=== PATIENT | female | born 1950 | race Caucasian/White ===

== ENCOUNTER 2019-01-20 07:50 | Observation (INO) | payer MEDICARE, BC ==
--- NOTE | 2019-01-18 16:10 | Diagnostic Imaging Report ---
EXAMINATION: CHEST 2 VIEWS INDICATION: Pre-operative COMPARISON: None FINDINGS: LINES/TUBES:None LUNGS:The lungs are hyperinflated. No focal consolidation or pulmonary edema. PLEURA:No pleural effusion or pneumothorax. MEDIASTINUM:The cardiomediastinal silhouette appears normal in size and shape. BONES/SOFT TISSUES:No acute osseous injury. ABDOMEN:No free air under the diaphragm. IMPRESSION: Hyperinflated lungs. No focal pneumonia or pulmonary edema. Signed by: Anne Marie Hendricks MD on 01/18/2019 4:07 PM
[2019-01-18 16:55] LABS: BASOPHILS % 0.5 % (0.0-1.0); EOSINOPHILS # (AUTO) 0.3 (0.0-0.4); EOSINOPHILS % 4.5 % (0.0-6.0); HEMATOCRIT 37.3 % (34.2-44.1); HEMOGLOBIN 12.6 g/dL (12.0-16.0); LYMPHOCYTES # (AUTO) 2.1 (1.0-3.2); LYMPHOCYTES % 37.8 % (18.0-39.1); MEAN CORPUSCULAR HEMOGLOBIN 33.3 pg (28-32); MEAN CORPUSCULAR HGB CONC 33.8 g/dL (31-35); MEAN CORPUSCULAR VOLUME 98.7 fL (81-99); MONOCYTES # (AUTO) 0.5 (0.2-0.8); MONOCYTES % 9.5 % (4.4-11.3); NEUTROPHILS # (AUTO) 2.6 (2.1-6.9); NEUTROPHILS % 47.2 % (38.7-80.0); RED BLOOD COUNT 3.78 x10e6/uL (3.6-5.1); RED CELL DISTRIBUTION WIDTH 13.1 % (11.7-14.4)
[2019-01-18 17:02] LABS: PLATELET COUNT 99 x10e3/uL (140-360)
[2019-01-18 17:05] LABS: INR 0.9; PARTIAL THROMBOPLASTIN TIME 25.3 seconds (23.8-35.5); PROTHROMBIN TIME 12.6 seconds (11.9-14.5)
[2019-01-18 17:12] LABS: ANION GAP 16.7 mmol/L (8-16); CALCIUM 9.8 mg/dL (8.4-10.2); CREATININE, SERUM 0.98 mg/dL (0.57-1.11); POTASSIUM 3.7 mmol/L (3.5-5.1)
[~2019-01-20] VITALS: Ht 165.1 cm; Wt 54.4 kg
[~2019-01-20 07:50] MED LIST: ADVIL200 MG PO; IMBRUVICA PO; TYLENOL SINUS PO
--- OUTSIDE RECORDS SUMMARY | 2019-01-20 07:55 | XMS REPORT ---
Author [facility] Address Unknown Phone Unavailable Care Team Providers Care [employer] Report Developer Name Role Phone PAPA ISLAS Unavailable Unavailable Problems This patient has no known problems. Allergies, Adverse Reactions, Alerts This patient has no known allergies or adverse reactions. Medications This patient has no known medications. Results Test Description Test Time Test Comments Text Results Atomic Results Result Comments CHEST 2 VIEWS 2019-01-18 16:06:00 [place] [id number] Patient Name: RINKU EASTON MR #: [id number] : 1950 Age/Sex: 68/F Req #: [id number] [facility] Physician: Ordered by: PAPA ISLAS MD Report #: [id number] Location: OR Room/Bed: Procedure: [id number] DX/CHEST 2 VIEWS Exam Date: 01/18/19 Exam Time: 1534 REPORT STATUS: Signed EXAMINATION: CHEST 2 VIEWS INDICATION: Pre-operative COMPARISON: None FINDINGS: LINES/TUBES:None LUNGS:The lungs are hyperinflated. No focal consolidation or pulmonary edema. PLEURA:No pleural effusion or pneumothorax. MEDIASTINUM:The cardiomediastinal silhouette appears normal in size and shape. BONES/SOFT TISSUES:No acute osseous injury. ABDOMEN:No free air under the diaphragm. IMPRESSION: Hyperinflated lungs. No focal pneumonia or pulmonary edema. Signed by: Gege Hendricks MD on 01/18/2019 4:07 PM Dictated By: GEGE HENDRICKS MD 1608 Transcribed By: ALVERTO on 01/18/19 1607 COPY TO: PAPA ISLAS MD
--- OUTSIDE RECORDS SUMMARY | 2019-01-20 07:56 | XMS REPORT | Summary of Care ---
Author Author Willie Hawthorne Unknown Address Unknown Phone Unavailable Care Team Providers Care Government Property Inspector Name Role Phone Danyell Hatch LVN Unavailable Unavailable JOANIE BOYLE, LANA Owens Unavailable Unavailable GAVIOTA FLEMING Unavailable Unavailable JOANIE Sultana, LANA Unavailable Unavailable ELIAS BOYLE VA, ESPINOZA COTTON Unavailable Unavailable Unavailable Unavailable Functional Status Name Dates Details Functional status health issues are not documented Status: Name Dates Details Cognitive status health issues are not documented Status: Problems Name Dates Details Allergic conjunctivitis (372.14, H10.10) Status: Active Pneumococcal vaccination declined by patient (V64.06, Z28.21) Status: Active Swelling of hand joint, right (719.04, M25.441) Status: Active Encounter for routine gynecological examination with Papanicolaou smear of cervix (V72.31, Z01.419) Status: Active Breast screening (V76.10, Z12.39) Status: Active Acute vaginitis (616.10, N76.0) Status: Active Pruritus (698.9, L29.9) Status: Active Elevated blood pressure reading (796.2, R03.0) Status: Active Colonoscopy refused (V64.2, Z53.20) Status: Active At low risk for fall (V49.89, Z91.81) Status: Active Advance care planning (V65.49, Z71.89) Status: Active Encounter for mini-mental status examination Status: Active Depression screen (V79.0, Z13.31) Status: Active Need for hepatitis C screening test (V73.89, Z11.59) Status: Active Acute purulent bronchitis (466.0, J20.8) Status: Active Phoebe vaginitis (112.1, B37.3) Status: Active Colon cancer screening (V76.51, Z12.11) Status: Active Allergic reaction (995.3, T78.40XA) Status: Active Insect bite, initial encounter (919.4, W57.XXXA) Status: Active Multiple insect bites (919.4, W57.XXXA) Status: Active Left otitis externa (380.10, H60.92) Status: Active Cough (786.2, R05) Status: Active Leukemia, 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 * Refills: 0 Active Allergies and Adverse Reactions Name Dates Details Bactrim TABS (Allergy) Status: Active Contrast Media Ready-Box MISC (Allergy) Status: Active Morphine Derivatives (Allergy) Status: Active Past Medical History Name Dates Details History of arthritis (V13.4, Z87.39) Status: Resolved History of Lactose intolerance (271.3, E73.9) Status: Resolved Procedures Procedure Dates Details History of Nose Surgery Completed Immunization Name Dates Details Pneumococcal polysaccharide vaccine, 23 valent on: 13-Feb-2002 Fluzone INJ on: 13-Feb-2015 Influenza, seasonal, injectable on: 13-Feb-2018 Family History Name Dates Details Family history of lung cancer (V16.1, Z80.1) Status: Active Name Dates Details Family history of chronic lymphoid leukemia (V16.6, Z80.6) Status: Active Name Dates Details Family history of myocardial infarction (V17.3, Z82.49) Status: Active Family history of cardiac disorder (V17.49, Z82.49) Status: Active Social History Name Dates Details - Status: Name Dates Details Never smoker Vital Signs Date Test Result Details [id number] BP Systolic 108 mm[Hg] Status: Comments: Location: LLE; Position: Sitting BP Diastolic 71 mm[Hg] Status: Comments: Location: LLE; Position: Sitting Height 65 in Status: Weight 120 lb Status: Body Mass Index Calculated 19.97 kg/m2 Status: Body Surface Area Calculated 1.59 m2 Status: Temperature 99 f Status: Comments: Method: Temporal Respiration Rate 16 /min Status: Heart Rate 81 /min Status: Results Date Description Value Details [id number] MRI Spine lumbar wo contrast [id number] Spine lumbar wo contrast MRI SEE NOTES Comments: Patient Name: RINKU EASTONDOB: 1950; Age: 68 years y/o FemaleMR: [id number]: Spine lumbar wo contrast MRI 01/10/2019 10:31 CDTOrdering Physician: Gaviota Mginical Indication: - M54.42 Lumbago with sciatica, left side;Comparison: NoneTECHNIQUE: Multiplanar noncontrast magnetic resonance imaging of the lumbarspine performed.FINDINGS:5 nonrib-bearing lumbar vertebral bodies are p resumed to be present.Mild scoliosis with apex of the left at L3. The vertebral bodies are normal inheight. Mild loss of disc height noted throughout the lumbar spine. There isdiffuse T1 hypointense marrow signal concerning for a marrow replacementprocess. Also noted is extensive retroperitoneal adenopathy. Completeassessment with CT of the abdomen and pelvis is suggested. The conus medullaristerminates normally at L1.Changes by levels:L5-S1: Broad-based left foraminal disc protrusion with moderate left foraminalstenosis and displacement of the exiting nerve root.L4-L5: A left central superior disc extrusion measuring 12 mm in CC and 6 mmin AP dimension resulting in severe stenosis of the left lateral recess withimpingement of left L5 nerve root as it exits the thecal sac. There is severestenosis of the left lateral recess. There is moderate central canal stenosisas well. The foramina are unremarkable.L3-L4: Broad-based bilateral foraminal disc protrusions with mild foraminalnarrowing and superior displacement of the exiting nerve roots.L2-L3: Small disc bulge with mild foraminal stenosis.L1-L2: Central disc extrusion which extends both superior and inferior to thedisc. There is mild indentation on the ventral thecal sac and mild foraminalstenosis.IMPRESSION:Irregular T1 hypointense marrow signal throughout the lumbosacral spineconcerning for osseous metastases. A bone scan is suggested.Extensive retroperitoneal adenopathy. Further assessment with CT of the chestand abdomen is recommended. Multilevel degenerative changes as described.--Read by: Brandee Contrerasctated Date/time: 01/10/19 12:40Electronically Signed by: Brandee Contreras 01/11/1912:47FINAL REPORT [id number] MRI Spine Sacrum wo contrast [id number] Spine Sacrum wo contrast MRI SEE NOTES Comments: Patient Name: RINKU EASTONDOB: 1950; Age: 68 years y/o FemaleMR: [id number]: Spine Sacrum wo contrast MRI 01/10/2019 10:31 CDTOrdering Physician: Gaviota Mginical Indication: - M54.42 Lumbago with sciatica, left side;Comparison: NoneTECHNIQUE: Multiplanar T1, T2, STIR weighted noncontrast MRI of the sacralspine is performed on the 1.5 Hilda magnet.FINDINGS:Diffuse heterogeneous marrow signal to be correlated for metastasis. Noevidence of pathologic fracture. Partially visualized degenerative changes inthe lower lumbar spine as described an magnetic resonance imaging of the lumbarspine. Extensive retroperitoneal adenopathy to be correlated with CT of theabdomen and pelvis.IMPRESSION:Diffuse heterogeneous T1 hyperintense marrow signal to be correlated formetastasis. No evidence of pathologic fracture.Extensive retroperitoneal adenopathy. Further assessment with CT of the abdomenand pelvis and tissue diagnosis is recommended.This report will be faxed to the referring physician's office.--Read by: Brandee Contreras Date/time: 01/10/19 12:44Electronically Signed by: Brandee Contreras 01/11/1912:51FINAL REPORT Plan of Care Name Dates Details Planned Observations Planned Goals not documented Interventions Provided Follow-ups/Referrals* Neurosurgery Referral; To Be Done: 13 Jan 2019 Instructions Name Dates Details Instructions not documented Encounters Appointment; LANA NAIR M.D. Encounter Diagnosis: Problem not documented On: 29-Jun-2017 9:45 Appointment; CARIDAD MUÑIZ M.D. Encounter Diagnosis: Problem not documented On: 04-Mar-2018 14:45 Appointment; KERVIN CHRISTIE NP Encounter Diagnosis: Problem not documented On: 05-May-2018 7:30 Appointment; KERVIN CHRISTIE NP Encounter Diagnosis: Problem not documented On: 26-Oct-2018 10:30 Appointment; GAVIOTA WILSON NP Encounter Diagnosis: Problem not documented On: 01-Jan-2019 10:00
[2019-01-20] MEDS ORDERED: BUPIVACAINE 0.5%/EPI 30 ML SDV INJ ONE (08:28)
[2019-01-20] MEDS ORDERED: BACITRACIN 50,000 UNIT VIAL ONE (08:28)
[2019-01-20] MEDS ORDERED: THROMBIN FOR SOLN 5,000 UNIT VIAL ONE (08:28)
[2019-01-20] MEDS ORDERED: CEFAZOLIN SOD 1 GM/NS 50ML 50 ML IV ONE (09:27)
[2019-01-20] MEDS ORDERED: ACETAMINOPHEN 1000 MG/100 ML 100 ML IV ONE (10:45)
--- NOTE | 2019-01-20 11:05 | Diagnostic Imaging Report ---
EXAMINATION: SPINE 1 VW LUMBAR INDICATION: Intraoperative localization COMPARISON: None FINDINGS: Intraoperative portable crosstable lateral radiograph of the lumbar spine shows radiopaque markers bracketing the L4-5 disc space. Degenerative changes of the lower lumbar spine. IMPRESSION: Intraoperative localization as above. Signed by: Anne Marie Hendricks MD on 01/20/2019 11:01 AM
--- NOTE | 2019-01-20 11:05 | Diagnostic Imaging Report ---
EXAMINATION: SPINE 1 VW LUMBAR INDICATION: Intraoperative localization COMPARISON: None FINDINGS: Intraoperative portable crosstable lateral radiograph of the lumbar spine shows posterior surgical instrument directed at L4-5. Otherwise no significant change. IMPRESSION: Intraoperative localization at L4-5. Signed by: Anne Marie Hendricks MD on 01/20/2019 11:02 AM
[2019-01-20] MEDS ORDERED: LIDOCAINE HCL 2% LOCAL INJ 5 ML SDV VIAL INJ ONE (11:10)
[2019-01-20] MEDS ORDERED: NEOSTIGMINE 5 MG/5ML SYR ONE (11:10)
[2019-01-20] MEDS ORDERED: DEXAMETHASONE SOD PHOS INJ 4 MG/ML VIAL ONE (11:10)
[2019-01-20] MEDS ORDERED: PROPOFOL IV EMULSION 10 MG/ML 20 ML VIAL ONE (11:10)
[2019-01-20] MEDS ORDERED: ONDANSETRON HCL INJ 2MG/ML 2ML 2 MG/ML VIAL ONE (11:10)
[2019-01-20] MEDS ORDERED: GLYCOPYRROLATE INJ 1MG/ 5 ML SYR ONE (11:10)
[2019-01-20] MEDS ORDERED: DESFLURANE 240 ML BTL INH ONE (11:10)
[2019-01-20] MEDS ORDERED: CARISOPRODOL 350 MG TAB PO PRN (11:15)
[2019-01-20] MEDS ORDERED: ACETAMINOPHEN 325 MG TAB PO PRN (11:15)
[2019-01-20] MEDS ORDERED: PROMETHAZINE HCL (IM) 25 MG/ML VIAL IM PRN (11:15)
[2019-01-20] MEDS ORDERED: MAGNESIUM/ALUMINUM/SIMETHICONE 30 ML UDC PO PRN (11:15)
[2019-01-20] MEDS ORDERED: ONDANSETRON HCL INJ 2MG/ML 2ML 2 MG/ML VIAL IV PRN (11:15)
[2019-01-20] MEDS ORDERED: OXYCODONE/ACETAMINOPHEN 5-325 1 EACH TABLET PO PRN (11:15)
[2019-01-20] MEDS ORDERED: CEPACOL SORE THROAT LOZENGES PO PRN (11:15)
[2019-01-20] MEDS: LACTATED RINGER'S 1,000 ML IV SCH ×2 (11:15→18:18)
[2019-01-20] MEDS ORDERED: HYDROMORPHONE 2MG/ML 2 MG/ML ML IV PRN (11:15)
[2019-01-20] MEDS ORDERED: HYDROMORPHONE 1MG/1ML INJ IV PRN ×2 (13:30→13:45)
--- NOTE | 2019-01-20 14:20 | Operative Report ---
DATE OF PROCEDURE: 01/20/2019 SURGEON: Anam Ramos MD PREOPERATIVE DIAGNOSIS: Left L4-L5 disk herniation with superior migration of the extruded disk fragment, M51.16. POSTOPERATIVE DIAGNOSIS: Left L4-L5 disk herniation with superior migration of the extruded disk fragment, M51.16. PROCEDURE: Left L4-L5 laminotomy, medial facetectomy, and microsurgical diskectomy, [address]. ANESTHESIA: General. INDICATIONS: The patient is a 68-year-old woman, who presents with a large left L4-L5 disk herniation with superior migration of the extruded disk fragment. She has a severe left L5 radiculopathy, refractory to conservative treatment, and was taken to the operating room for microsurgical diskectomy. PROCEDURE IN DETAIL: After induction of general anesthesia, the patient was placed on the operating table in prone position over Jerad frame. Lumbar region was prepped and draped in sterile fashion. A preoperative x-ray was obtained. A small midline incision was created. Lumbar fascia was opened in left of midline and subperiosteal dissection was carried out to expose the left-sided L4 and L5 lamina and the medial aspect of the facet joint. Second x-ray confirmed correct localization. The operating microscope was brought in. A high-speed drill equipped with noris bur was used to drill the inferior aspect of the lamina of L4 and the medial rim of the inferior articular process of L4 on the left side. The ligamentum flavum was resected and the dural sac and the L5 traversing nerve root were exposed. The epidural veins lateral to the dura were bipolar coagulated and divided with micro scissors. The herniated disk material came into view having superiorly migrated above the level of the disk, this was mobilized with a micro ball probe and grasped with a micropituitary rongeur and developed as a sizable fragment of disk. The dura was immediately decompressed. Meticulous hemostasis was secured. Attention was then directed more inferiorly toward the disk space itself. The L5 nerve root was retracted and the epidural veins overlying the disk anulus were bipolar coagulated and divided with micro scissors. The opening into the annulus of the disk was enlarged with a #11 blade and the loose contents of the disks were evacuated with pituitary rongeur. The submucous ligamentous portion of the disk herniation was then resected with a ball probe and up-angled pituitary. Excellent decompression of the L5 nerve root was thus achieved. The wound was copiously irrigated with bacitracin solution. A small piece of Gelfoam was placed in the lateral recess to maintain hemostasis. The lumbar fascia was closed with 0 Vicryl sutures. The subcutaneous layer was closed with 2-0 Vicryl sutures. The skin was closed with 3-0 Monocryl sutures in subcuticular fashion. Steri-Strips and dressing were applied. The patient was awakened, extubated, and taken to postanesthesia care unit in stable condition. No intraoperative complications were encountered. Estimated blood loss was 10 mL. Anam Ramos MD PP/BRONWYN /[id number]
[2019-01-20] MEDS: CEFAZOLIN SOD 1 GM/NS 50ML 50 ML IV SCH ×2 (14:30→22:10)
[2019-01-20 14:54] VITALS: BP 118/56
[2019-01-20 15:00] VITALS: BP 118/56
[2019-01-20 16:39] VITALS: BP 117/57
[2019-01-20] MEDS: IMBRUVICA 140 MG PO SCH (17:00)
--- NOTE | 2019-01-20 19:00 | NUR ---
RECEIVED PATIENT IN BEDSIDE REPORT. PATIENT RESTING IN BED AT THIS TIME. PATIENT REPORTS PAIN IN BACK IS VERY MANAGEABLE, BUT HAS SLIGHT HEADACHE. R FA 20G IV IS ASYMPTOMATIC, INTACT, AND PATENT. NO S&S OF DISTRESS NOTED. BED LOCKED IN LOWEST POSITION, SIDE RAILS UPX2, CALL LIGHT IN REACH.
[2019-01-20] MEDS ORDERED: FENTANYL CITRATE/PF 100MCG/2 ML INJ ONE ×2 (19:19→19:34)
[2019-01-20] MEDS ORDERED: MIDAZOLAM HCL 2 MG/2 ML VIAL ONE ×2 (19:19→19:34)
[2019-01-20 20:00] VITALS: BP 157/67
[2019-01-20] MEDS ORDERED: ZOLPIDEM TARTRATE 5 MG TAB PO PRN (21:00)
[2019-01-20 21:26] VITALS: BP 108/56
[2019-01-20] MEDS ORDERED: SODIUM CHLORIDE 0.9% 50ML 50 ML ONE (22:03)
[2019-01-21] VITALS: BP 129/62
[2019-01-21] MEDS: LACTATED RINGER'S 1,000 ML IV SCH (03:55)
[2019-01-21 04:00] VITALS: BP 129/63
[2019-01-21] MEDS: CEFAZOLIN SOD 1 GM/NS 50ML 50 ML IV SCH (05:57)
--- NOTE | 2019-01-21 06:14 | NUR ---
PATIENT RESTING IN BED AT THIS TIME. NO PAIN REPORTED. NO S&S OF DISTRESS NOTED.
[2019-01-21] MEDS ORDERED: NORCO 7.5-3251 EACH PO (07:06)
[2019-01-21 08:00] VITALS: BP 123/58
[2019-01-21] MEDS ORDERED: ONDANSETRON HCL 4 MG ORAL DISINTEGRATING TAB PO PRN (08:00)
[2019-01-21] MEDS: IMBRUVICA 140 MG PO SCH (08:43)
--- NOTE | 2019-01-21 08:43 | NUR ---
DISCHARGE INSTRUCTIONS AND PRESCRIPTIONS GIVEN PT VERBALIZED UNDERSTANDING IV DC PRESSURE DRESSING APPLIED AND TAPED PT IS NOW OFF UNIT TO HOME
[2019-01-21 08:53] VITALS: BP 123/58
--- NOTE | 2019-01-21 08:54 | NUR ---
PT OFF UNIT TO HOME VIA WHEEL CHAIR AT THIS TIME
--- NOTE | 2019-01-21 08:57 | NUR ---
MATA EXPLAINED TO PT, SIGNED BY PT AND PLACED IN CHART COPY OF ADOLFO IN CARE TRANSITION FOLDER
== END 2019-01-21 08:54 | disposition home or self-care (01) ==
LOC: OR 07:50 → PACU V 11:18 → MED/SURG 12:56
PROVIDERS: ADMIT Neurological Surgery; ATTEND Neurological Surgery
DX: M51.16 Intervertebral disc disorders with radiculopathy, lumbar region (principal); C91.10 Chronic lymphocytic leukemia of B-cell type not having achieved remission; J30.9 Allergic rhinitis, unspecified; M19.90 Unspecified osteoarthritis, unspecified site; Z01.810 Encounter for preprocedural cardiovascular examination; Z01.812 Encounter for preprocedural laboratory examination; Z01.811 Encounter for preprocedural respiratory examination
CPT/HCPCS: 36415; 63047; 71046; 72020; 80048; 85025; 85610; 85730; 86850; 86900; 88304; 93005; G0378 ×2; J0131; J0690 ×2; J1100; J2001; J2250; J2405; J2704; J3010; J3490

== ENCOUNTER → 2019-04-14 | Outpatient (RCR) | payer MEDICARE, BC ==
[~2019-04-14] MED LIST changes: +NORCO 7.5-3251 EACH PO
== END ==
LOC: PT 03-29 10:55
PROVIDERS: ATTEND Neurological Surgery
DX: M51.16 Intervertebral disc disorders with radiculopathy, lumbar region (principal)

== ENCOUNTER 2019-04-21 10:51 | Outpatient (RCR) | payer MEDICARE, BC | END 2019-05-14 | LOC: PT 10:51 | PROVIDERS: ATTEND Neurological Surgery | DX: M51.16 Intervertebral disc disorders with radiculopathy, lumbar region (principal); M79.662 Pain in left lower leg; R26.2 Difficulty in walking, not elsewhere classified ==